=== PATIENT | male | born 1970 | race Caucasian/White ===

== ENCOUNTER 2018-07-06 16:00 | Emergency (ER) | payer OTHER ==
[2018-07-06 16:09] VITALS: BP 143/79; PULSE 83; TEMP 98.5; BMI 25.4
--- NOTE | 2018-07-06 16:39 | PDOC ---
History of Present Illness - General History Source: Patient Exam Limitations: No Limitations - History of Present Illness Initial Comments: 07/06/18 16:50 The patient is a 48 year old male, with a PMH of BPH and herpes, who presents to the emergency department for evaluation of flu like symptoms. The patient states he has had body aches, productive cough yellow in color, minor SOB, fevers, chills and nausea since Friday. He reports taking advil cold and sinus with little relief. Patient notes he has a son at home with the flu. The patient denies chest pain, headache and dizziness. Denies vomit, diarrhea and constipation. Denies dysuria, frequency, urgency and hematuria. Allergies: NKA Social history: None reported PCP: Dr. Kilgore <Bri Doyle - Last Filed: 07/06/18 16:50> <Donell Terry - Last Filed: 07/06/18 19:05> - General Chief Complaint: Respiratory Stated Complaint: COUGH & COLD SX Time Seen by Provider: 07/06/18 16:14 Past History <Bri Doyle - Last Filed: 07/06/18 16:50> - Past Medical History COPD: No Disorders: Yes (BPH) - Suicide/Smoking/Psychosocial Hx Smoking History: Never smoked Have you smoked in the past 12 months: No Information on smoking cessation initiated: No Hx Alcohol Use: (occasional) <Donell Terry - Last Filed: 07/06/18 19:05> - Past Medical History Allergies/Adverse Reactions: Allergies Allergy/AdvReac Type Severity Reaction Status Date / Time No Known Allergies Allergy Verified 07/06/18 16:03 Home Medications: Ambulatory Orders Aspirin [Aspirin EC] 81 mg PO DAILY 07/06/18 Finasteride 5 mg PO DAILY 07/06/18 Naproxen 500 mg PO DAILY 07/06/18 Tamsulosin HCl [Flomax] 0.4 mg PO DAILY 07/06/18 Review of Systems - Review of Systems Comments:: 07/06/18 16:51 A complete review of 10 out of 10 review of systems is taken and is negative apart from what is previously mentioned below and in the HPI. Respiratory: Yes: SOB at Rest, Other <Bri Doyle - Last Filed: 07/06/18 16:50> *Physical Exam - Vital Signs Last Vital Signs Temp Pulse Resp BP Pulse Ox 98.5 F 83 18 143/79 100 07/06/18 16:00 07/06/18 16:00 07/06/18 16:00 07/06/18 16:00 07/06/18 16:00 - Physical Exam Comments: 07/06/18 16:51 Vitals: Triage Vital signs reviewed General Appearance: no acute distress, well nourished well developed, Head: Atraumatic, normocephalic Eyes: Pupils equal reactive round, extraocular movement intact Ears: TM's normal bilaterally; Nose: Nares patent bilaterally;no nasal congestion Throat: (+)Posterior oropharynx mild erythema, mucous membranes moist, Neck: Supple;No Nuchal rigidity Chest Wall: Nontender Cardiac: Regular rate and rhythm, no murmurs, no rubs, no gallops, Lungs: Clear to auscultation bilateral, good air movement bilaterally, Abdomen: Soft, nondistended, normal bowel sounds, nontender to palpation <Bri Doyle - Last Filed: 07/06/18 16:50> - Vital Signs Last Vital Signs Temp Pulse Resp BP Pulse Ox 98.5 F 83 18 143/79 100 07/06/18 16:00 07/06/18 16:00 07/06/18 16:00 07/06/18 16:00 07/06/18 16:00 <Donell Terry - Last Filed: 07/06/18 19:05> Moderate Sedation - Procedure Monitoring Vital Signs: Procedure Monitoring Vital Signs Temperature 98.5 F 07/06/18 16:00 Pulse Rate 83 07/06/18 16:00 Respiratory Rate 18 07/06/18 16:00 Blood Pressure 143/79 07/06/18 16:00 O2 Sat by Pulse Oximetry (%) 100 07/06/18 16:00 <Bri Doyle - Last Filed: 07/06/18 16:50> - Procedure Monitoring Vital Signs: Procedure Monitoring Vital Signs Temperature 98.5 F 07/06/18 16:00 Pulse Rate 83 07/06/18 16:00 Respiratory Rate 18 07/06/18 16:00 Blood Pressure 143/79 07/06/18 16:00 O2 Sat by Pulse Oximetry (%) 100 07/06/18 16:00 <Donell eTrry - Last Filed: 07/06/18 19:05> Medical Decision Making - Medical Decision Making 07/06/18 19:05 Status post Toradol and Tylenol patient feels better rapid strep negative history examination consistent with flu patient not in the window for influenza Supportive measures only Findings, the need for follow-up and strict return instructions discussed with patient. <Donell Terry - Last Filed: 07/06/18 19:05> *DC/Admit/Observation/Transfer - Attestations Scribe Attestion: 07/06/18 16:53 Documentation prepared by Bri Doyle, acting as senior medical transcriptionist for Donell Terry MD <Bri Doyle - Last Filed: 07/06/18 16:50> - Discharge Dispostion Decision to Admit order: No <Donell Terry - Last Filed: 07/06/18 19:05> Diagnosis at time of Disposition: Influenza - Discharge Dispostion Disposition: HOME Condition at time of disposition: Stable - Referrals Referrals: Cecilia Kilgore MD [Primary Care Provider] - - Patient Instructions Printed Discharge Instructions: Influenza Additional Instructions: Alternate [id number] Tylenol and Advil as directed on package every 3 hours. Drink plenty of fluids. Avoid contact with the elderly and small children. - Post Discharge Activity
[2018-07-06] MEDS ORDERED: KETOROLAC TROMETHAMINE 30 MG/1 ML VIAL IM ONE (16:46)
[2018-07-06] MEDS ORDERED: ACETAMINOPHEN 325 MG TABLET (FP) PO ONE (16:47)
[2018-07-06] MEDS ORDERED: KETOROLAC TROMETHAMINE 30 MG/1 ML VIAL ONE (16:53)
[2018-07-06] MEDS ORDERED: ACETAMINOPHEN 325 MG TABLET (FP) ONE (16:53)
== END 2018-07-06 17:45 | disposition home or self-care (01) ==
LOC: FER 16:00
PROC: 3E0233Z Introduction of Anti-inflammatory into Muscle, Percutaneous Approach (ICD-10-PCS; principal; 2018-07-06)
DX: J11.1 Influenza due to unidentified influenza virus with other respiratory manifestations (principal)
CPT/HCPCS: 71045-TC-FY; 87070; 87880; 96372; 99283-25